=== PATIENT | female | born 1995 | race Caucasian/White ===

== ENCOUNTER → 2018-11-16 | Outpatient (CLI) | payer OTHER | LOC: M SMT 14:27 | PROVIDERS: ATTEND Allergy & Immunology Allergy | DX: R19.7 Diarrhea, unspecified (principal); K90.49 Malabsorption due to intolerance, not elsewhere classified ==

== ENCOUNTER → 2019-08-09 | Outpatient (CLI) | payer OTHER ==
--- NOTE | 2019-08-09 20:11 | REP ---
Clinical: Cough . Comparison: None . Technique: PA and lateral. Findings: The mediastinum and cardiac silhouette are normal. The lung de la garza are clear and without acute consolidation, effusion, or pneumothorax. The skeletal structures are intact and normal. Impression: 1. No acute cardiopulmonary process. Electronically Signed by Christian Espinoza MD 08/09/2019 08:03 P
== END ==
LOC: M LRY 19:50
PROVIDERS: ATTEND Physician Assistant
DX: R05 Cough (principal)
CPT/HCPCS: 71046; 87804; G0463